=== PATIENT | female | born 1995 ===

== ENCOUNTER 2018-03-29 13:21 | Emergency (ER) | payer OTHER ==
[2018-03-29 13:21] VITALS: BMI 26.2
[2018-03-29 13:42] VITALS: BP 124/85; PULSE 91; RESP 16; TEMP 97.8; O2SAT 98
--- NOTE | 2018-03-29 14:24 | RAD ---
Date of service: 03/29/2018 PROCEDURE: Radiographs of the Left Shoulder HISTORY: r/o fx COMPARISON: No prior. FINDINGS: BONES: Bone alignment and mineralization are normal. There is no acute displaced fracture or bone destruction. JOINTS: Normal. Glenohumeral and acromioclavicular joints preserved. SOFT TISSUES: Normal. OTHER FINDINGS: None. IMPRESSION: No acute fracture or dislocation.
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
== END 2018-03-29 14:34 | disposition home or self-care (01) ==
LOC: C.ER 13:21
DX: S43.402A Unspecified sprain of left shoulder joint, initial encounter (principal); V49.49XA Driver injured in collision with other motor vehicles in traffic accident, initial encounter; Y92.410 Unspecified street and highway as the place of occurrence of the external cause

== ENCOUNTER 2018-09-25 06:11 | Emergency (ER) | payer OTHER ==
[2018-09-25 06:11] VITALS: BMI 26.2
[2018-09-25] MEDS ORDERED: Sodium Chloride 0.9% 1,000 ML IV ONE (06:28)
[2018-09-25] MEDS ORDERED: Sucralfate 1 gm/10 ml Oral Susp UD PO STA (06:29)
--- NOTE | 2018-09-25 06:41 | C.PDOC ---
History Of Present Illness 22 year old female presents to the ED for evaluation of abdominal pain associated with nausea and vomiting which began tonight. Patient denies diarrhea, dysuria and hematuria. Chief Complaint (Nursing): Abdominal Pain History Per: Patient History/Exam Limitations: no limitations Onset/Duration Of Symptoms: Hrs Current Symptoms Are (Timing): Still Present Location Of Pain/Discomfort: Diffuse Quality Of Discomfort: "Pain" Associated Symptoms: Nausea, Vomiting. denies: Diarrhea, Urinary Symptoms Past Medical History Reviewed: Historical Data, Nursing Documentation, Vital Signs Vital Signs: Last Vital Signs Temp 98.3 F 09/25/18 06:17 Pulse 87 09/25/18 06:17 Resp 18 09/25/18 06:17 BP 115/77 09/25/18 06:17 Pulse Ox 99 09/25/18 06:17 - Medical History PMH: Anxiety (NO MEDS), Gastritis Denies: Chronic Kidney Disease Surgical History: Appendectomy, Endoscopy Family History: States: Unknown Family Hx - Social History Hx Alcohol Use: No Hx Substance Use: No Review Of Systems Gastrointestinal: Positive for: Nausea, Vomiting, Abdominal Pain. Negative for: Diarrhea Genitourinary: Negative for: Dysuria, Hematuria Physical Exam - Physical Exam Appears: Non-toxic, No Acute Distress Skin: Normal Color, Warm, Dry Head: Atraumatic, Normacephalic Eye(s): bilateral: Normal Inspection Oral Mucosa: Moist Neck: Supple Chest: Symmetrical, No Deformity, No Tenderness Cardiovascular: Rhythm Regular, No Murmur Respiratory: Normal Breath Sounds, No Rales, No Rhonchi, No Wheezing Gastrointestinal/Abdominal: Soft, Tenderness (epigastric and left upper quadrant ), No Guarding, No Rebound Extremity: Normal ROM, Capillary Refill (less than 2 seconds ) Neurological/Psych: Oriented x3, Normal Speech, Normal Cognition ED Course And Treatment - Laboratory Results Result Diagrams: 09/25/18 06:46 O2 Sat by Pulse Oximetry: 99 (on RA ) Pulse Ox Interpretation: Normal Progress Note: Bloodwork, urinalysis ordered and reviewed. Patient given Bentyl IM, Pepcid IVP, Zofran IVP, Carafate PO and IV Fluids. Disposition - Disposition Disposition Time: 07:00 Condition: STABLE Forms: [facility] (Occitan) - Clinical Impression Clinical Impression: Abdominal pain - Scribe Statement The provider has reviewed the documentation as recorded by the Scribe (Siomara Dawson) Provider Attestation: All medical record entries made by the Scribe were at my direction and personally dictated by me. I have reviewed the chart and agree that the record accurately reflects my personal performance of the history, physical exam, medical decision making, and the department course for this patient. I have also personally directed, reviewed, and agree with the discharge instructions and disposition.
[2018-09-25 06:49] LABS: BASO % 0.5 % (0.0-2.0); EOS # 0.1 K/uL (0.0-0.7); EOS % 0.8 % (0.0-4.0); HEMOGLOBIN 14.1 g/dL (11.0-16.0); LYMPH # 1.8 K/uL (1.0-4.3); LYMPH % 22.1 % (20.0-40.0); MEAN CELL VOLUME 93.5 fL (81.0-99.0); MEAN CORPUSCULAR HEMOGLOBIN 31.6 pg (27.0-31.0); MEAN CORPUSCULAR HGB CONC 33.8 g/dL (33.0-37.0); MONO # 0.4 K/uL (0.0-0.8); MONO % 4.8 % (0.0-10.0); NEUT # 5.8 K/uL (1.8-7.0); NEUT % 71.8 % (50.0-75.0); RBC 4.46 Mil/uL (3.80-5.20); WHITE BLOOD COUNT 8.1 K/uL (4.8-10.8)
[2018-09-25 06:51] LABS: HCG,QUALITATIVE URINE NEGATIVE (NEGATIVE)
[2018-09-25 06:52] LABS: SQUAMOUS EPITHIAL 5 /hpf (0-5); URINE BILIRUBIN NEGATIVE (NEGATIVE); URINE CLARITY Hazy (Clear); URINE COLOR Yellow (YELLOW); URINE GLUCOSE (UA) NORMAL (Normal); URINE LEUKOCYTE ESTERASE NEG Leu/uL (Negative); URINE PROTEIN NEGATIVE (NEGATIVE)
[2018-09-25 06:53] LABS: URINE BLOOD NEGATIVE (NEGATIVE)
[2018-09-25 09:04] VITALS: BP 100/64; PULSE 70; RESP 17; TEMP 98; O2SAT 100
[2018-09-25 09:32] LABS: ALB/GLOB RATIO 1.5 (1.0-2.1); ALBUMIN 4.2 g/dL (3.5-5.0); ALT/SGPT 11 U/L (9-52); AST/SGOT 17 U/L (14-36); BLOOD UREA NITROGEN 13 mg/dL (7-17); CALCIUM 9.1 mg/dl (8.6-10.4); GFR NON-AFRICAN AMERICAN > 60; LIPASE 74 U/L (23-300)
== END 2018-09-25 09:45 | disposition home or self-care (01) ==
LOC: C.ER 06:11
DX: R10.13 Epigastric pain (principal); R11.2 Nausea with vomiting, unspecified
CPT/HCPCS: 80053; 81001; 83690; 84703; 85025; 96372; 96374; 96375; 99285; J0500; J2405; J7030